=== PATIENT | female | born 1955 | race African-American/Black ===

== ENCOUNTER 2017-11-08 20:03 | Emergency (ER) | payer MEDICARE, MEDICAID ==
[~2017-11-08] VITALS: Ht 162.6 cm; Wt 50.0 kg
[~2017-11-08 20:03] MED LIST: Folic Acid PO; KEPP500 PO; LISI10TA5 PO; Multivitamins,Ther W-Minerals PO; NITR-87 PO; TRAM50TA94 PO; Thiamine Hcl PO
[2017-11-08] MEDS ORDERED: SODIUM CHLORIDE 0.9% 1,000 ML IV ONE (20:27)
[2017-11-08] MEDS ORDERED: ONDANSETRON HCL 4MG/2ML VIAL IV STA (20:27)
[2017-11-08] MEDS ORDERED: FOLIC ACID 1 MG, THIAMINE HCL 100 MG, MVI, ADULT NO.1 10 ML in DEXTROSE 5% WATER 1,000 ML IV ONE ×4 (20:30)
[2017-11-08] MEDS ORDERED: LORAZEPAM 2MG/ML CPJ IV ONE (20:30)
[2017-11-08 21:06] LABS: BASOPHILS % 0.9 % (0.0-2.0); EOSINOPHILS % 4.9 % (0.0-5.0); HEMOGLOBIN. 13.5 g/dL (12.0-16.0); LYMPHOCYTES % 22.6 % (20.0-50.0); MEAN CORPUSCULAR HEMOGLOBIN 30.9 pg (28.0-32.0); MEAN CORPUSCULAR VOLUME 91.8 fL (81.0-99.0); MEAN PLATELET VOLUME 7.7 fl (7.4-10.4); MONOCYTES % 10.4 % (2.0-8.0); NEUTROPHILS % 61.2 % (40.0-76.0); PLATELET 236 x1000/uL (130-400); RED BLOOD CELL COUNT 4.35 mill/uL (4.2-5.4); RED CELL DISTRIBUTION WIDTH 14.2 % (11.6-14.6)
[2017-11-08 21:08] LABS: CHLORIDE 102 mEq/L (98-107)
[2017-11-08 21:10] LABS: INR 1.1; PROTHROMBIN TIME 11.6 sec (9.4-11.6)
[2017-11-08 21:14] LABS: ETHANOL BLOOD < 10 mg/dL
[2017-11-08 21:18] LABS: CREATINE KINASE 121 IU/L (26-192)
[2017-11-08 21:22] LABS: CARBAMAZEPINE < 0.5 ug/mL (4-12); PHENOBARBITAL < 2.1 ug/mL (15.0-40.0); VALPROIC ACID < 3.0 ug/mL (50-100)
[2017-11-09 06:00] VITALS: BP 120/70
== END 2017-11-09 06:59 | disposition home or self-care (01) ==
LOC: ER 20:15
DX: F10.239 Alcohol dependence with withdrawal, unspecified (principal); R25.1 Tremor, unspecified; R53.1 Weakness; G40.909 Epilepsy, unspecified, not intractable, without status epilepticus; J45.909 Unspecified asthma, uncomplicated; I10 Essential (primary) hypertension; F20.9 Schizophrenia, unspecified; Y90.0 Blood alcohol level of less than 20 mg/100 ml; Z88.0 Allergy status to penicillin; Z98.49 Cataract extraction status, unspecified eye
CPT/HCPCS: 36415; 80053; 80156; 80165; 80184; 80185; 82550; 82962; 83605; 83880; 84443; 84484; 85025; 85610; 93005; 96361; 96365; 96366; 96375; 99285; G0482; J2060; J2405; J3411; J3490; J7030; J7070

== ENCOUNTER 2018-01-02 11:58 | Emergency (ER) | payer MEDICARE, MEDICAID ==
[~2018-01-02] VITALS: Ht 160 cm; Wt 50.0 kg
[2018-01-02 12:12] VITALS: BP 116/77
== END 2018-01-02 18:35 | disposition left against medical advice (07) ==
LOC: ER 13:22
DX: H61.22 Impacted cerumen, left ear (principal); R56.9 Unspecified convulsions
CPT/HCPCS: 99281

== ENCOUNTER 2019-02-02 17:09 | Emergency (ER) | payer MEDICARE, MEDICAID ==
[~2019-02-02] VITALS: Ht 162.6 cm; Wt 59.0 kg
[2019-02-02] MEDS ORDERED: LEVETIRACETAM 500MG TABLET PO ONE (19:15)
[2019-02-02 19:27] LABS: BASOPHILS % 0.5 % (0.0-2.0); EOSINOPHILS % 0.6 % (0.0-5.0); HEMATOCRIT. 38.4 % (36.0-48.0); LYMPHOCYTES % 8.3 % (20.0-50.0); MEAN CORPUSCULAR VOLUME 94.3 fL (81.0-99.0); MEAN PLATELET VOLUME 8.3 fl (7.4-10.4); MONOCYTES % 5.1 % (2.0-8.0); NEUTROPHILS % 85.5 % (40.0-76.0); PLATELET 161 x1000/uL (130-400); RED BLOOD CELL COUNT 4.07 mill/uL (4.2-5.4); RED CELL DISTRIBUTION WIDTH 14.8 % (11.6-14.6)
[2019-02-02 19:28] LABS: CHLORIDE 100 mEq/L (98-107)
[2019-02-02 19:32] LABS: ETHANOL BLOOD < 10 mg/dL
[2019-02-02] MEDS ORDERED: LEVOFLOXACIN 500MG PREMIX 100 ML IV ONE (22:00)
[2019-02-02 22:44] LABS: CLARITY URINE CLOUDY (CLEAR); COLOR URINE YELLOW (YELLOW); KETONES URINE NEGATIVE (NEGATIVE); LEUKOCYTE ESTERASE URINE 2+ (NEGATIVE); NITRITE URINE POSITIVE (NEGATIVE); OCCULT BLOOD URINE 1+ (NEGATIVE); PROTEIN URINE TRACE (NEGATIVE); SPECIFIC GRAVITY URINE 1.017 (1.005-1.030)
[2019-02-02] MEDS ORDERED: ACETAMINOPHEN 500MG TABLET PO NR (23:00)
[2019-02-03] MEDS ORDERED: IBUPROFEN 600MG TABLET ONE (00:56)
[2019-02-03] MEDS ORDERED: IBUPROFEN 600MG TABLET PO ONE (01:30)
[2019-02-03] MEDS ORDERED: PHENYTOIN SODIUM EXTENDED 100MG CAPSULE PO NR (01:45)
[2019-02-03 02:15] VITALS: BP 125/65
== END 2019-02-03 03:23 | disposition home or self-care (01) ==
LOC: ER 17:55
DX: R56.9 Unspecified convulsions (principal); N39.0 Urinary tract infection, site not specified; R51 Headache; I10 Essential (primary) hypertension; Z79.899 Other long term (current) drug therapy; Z91.14 Patient's other noncompliance with medication regimen
CPT/HCPCS: 36415; 80048; 80320; 81003; 83605; 83690; 85025; 87040; 87077; 87086; 87186; 96365; 96366; 99284; J1956; G0480